=== PATIENT | male | born 1960 ===

== ENCOUNTER 2023-09-23 06:15 | Day surgery (SDC) | payer OTHER ==
[~2023-09-23 06:15] MED LIST: GLIPIZIDE; LANTUS SOL100 UNIT/1 SQ; PLOGLITAZONE
[2023-09-23] MEDS ORDERED: CEFAZOLIN SODIUM 1,000 MG VIAL ONE (07:35)
[2023-09-23] MEDS ORDERED: BUPIVACAINE HCL/PF 0.5% 30ML ML ONE (08:17)
[2023-09-23] MEDS ORDERED: BUPIVACAINE HCL 30 ML VIAL IJ ONE (09:00)
[2023-09-23] MEDS ORDERED: CEFAZOLIN SODIUM 1,000 MG VIAL IV ONE (09:00)
== END 2023-09-23 11:25 | disposition home or self-care (01) ==
LOC: CIR.AMB 06:15
PROVIDERS: ATTEND Orthopaedic Surgery Hand Surgery
DX: D21.11 Benign neoplasm of connective and other soft tissue of right upper limb, including shoulder (principal); R22.31 Localized swelling, mass and lump, right upper limb